=== PATIENT | female | born 2005 | race Caucasian/White ===

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

== ENCOUNTER 2025-03-24 12:58 | Emergency (ER) | payer OTHER ==
[~2025-03-24] VITALS: Ht 157.5 cm; Wt 68.2 kg
[~2025-03-24 12:58] MED LIST changes: +AMOX TR-K CLV1 EAC1 PO; +CEPHALEXIN500 M1 PO; +ENSKYCE1 EACH PO; +SUMATRIPTAN SUC50 MG PO; +TOPIRAMATE100 MG PO; +TRAMADOL HCL50 MG PO
[2025-03-24] MEDS ORDERED: ONDANSETRON 4 MG TAB ODT SL ONE (13:45)
[2025-03-24] MEDS ORDERED: cloNIDine HCL 0.1 MG TAB PO ONE (13:45)
[2025-03-24] MEDS ORDERED: ONDANSETRON ODT8 MG PO (14:19)
[2025-03-24] MEDS ORDERED: CLONIDINE HCL0.1 M1 PO (14:19)
[2025-03-24] MEDS ORDERED: ONDANSETRON 4 MG HOME.PACK SL ONE (14:30)
[2025-03-24 14:34] VITALS: BP 122/73
== END 2025-03-24 14:34 | disposition home or self-care (01) ==
LOC: ED 12:58
DX: Z76.0 Encounter for issue of repeat prescription (principal); R11.0 Nausea; F43.10 Post-traumatic stress disorder, unspecified; Z79.2 Long term (current) use of antibiotics
CPT/HCPCS: 99281; A9270